=== PATIENT | female | born 1985 | race Caucasian/White ===

== ENCOUNTER 2017-07-23 09:16 | Emergency (ER) | payer OTHER ==
[~2017-07-23] VITALS: Ht 154.9 cm; Wt 52.3 kg
[2017-07-23 09:26] VITALS: Ht 154.9 cm; Wt 52.3 kg
[2017-07-23] MEDS ORDERED: HYDR-5688 PO (09:49)
[2017-07-23] MEDS ORDERED: METH4PAK PO (09:49)
[2017-07-23] MEDS ORDERED: CYCL5TAB PO (09:49)
--- NOTE | 2017-07-23 09:50 | EMERGENCY ROOM VISIT NOTE ---
History First contact with patient: 09:34 Chief Complaint: BACK PAIN Stated Complaint: REALLY BAD RIGHT LOWER BACK PAIN History of Present Illness The patient is a 31 year old female who presents to the Emergency Room via private vehicle "really bad right lower back pain". The patient states that she has a young child of which she frequently lifts with complaints of, and also participates in gym activities. She states that this past Wednesday she noticed pain in the right lower back/gluteal region that radiates down her right leg with a tingling sensation. She denies any fevers, chills, chest pain , shortness of breath, urinary symptoms, abdominal pain, chance of . The pain is worse with certain movements. No trauma or injury to the area. She rates her overall pain as an 8/10. She is taking ibuprofen with minimal relief. Review of Systems A complete 6-point Review of Systems was discussed with the patient, with pertinent positives and negatives listed in the History of Present Illness. All remaining Review of Systems questions can be considered negative unless otherwise specified. Past Medical/Surgical History No pertinent Family History No pertinent Social History Smoking Status: Never Smoker Pt. lives locally Current/Historical Medications Scheduled Cyclobenzaprine Hcl (Flexeril), 5 MG PO TID Methylprednisolone (Medrol Dosepak), 0 PO DAILY Scheduled PRN Hydrocodone/Acetaminophen 5MG/325MG ([place] 5MG/325MG), 1-2 TABLET PO Q6 PRN for Pain Physical Exam Vital Signs Date Time Temp Pulse Resp B/P (MAP) Pulse Ox O2 Delivery O2 Flow Rate FiO2 07/23/17 10:16 36.7 57 18 110/72 99 07/23/17 09:26 36.7 87 18 113/66 95 Room Air Physical Exam VITAL SIGNS - Vital signs and nursing notes were reviewed. Stable. GENERAL - 31-year-old female appearing her stated age who is in no acute distress. Communicates well with provider and answers questions appropriately. SKIN - Without rashes. No meningeal or petechial rash. HEAD - NC/AT. EYES - PERRL with EOMI bilaterally. Sclera anicteric. EARS - No deformities of external structures noted on gross examination bilaterally. NOSE - Midline and without cyanosis. No epistaxis or purulent drainage noted. MOUTH/OROPHARYNX - Without perioral cyanosis. NECK - Neck with FROM. No nuchal rigidity. LUNGS - Chest wall symmetric without accessory muscle use, intercostals retractions, or central cyanosis. Normal vesicular breath sounds CTA B/L. No wheezes, rales, or rhonchi appreciated. CARDIAC - RRR with S1/S2. No murmur, rubs, or gallops appreciated. ABDOMEN - Abdominal contour normal without pulsations or visible masses. BS normoactive all four quadrants. No tenderness, palpable masses, hepatosplenomegaly, or ascites noted. EXTREMITIES - No clubbing or peripheral cyanosis. No pretibial edema present. Full sensation intact in the right lower extremity. She is able to axial load. +5/5 strength noted in UE/LE bilaterally. NEUROLOGIC - Cranial nerves II through XII grossly intact. Sensory intact to light touch throughout. Patient's legs seem to be flexed therefore making the ability to elicit reflexes difficult however no neurovascular deficit appreciated. MUSCULOSKELETAL: Minimal tenderness to palpation overlying the patient's right inferior lumbar and right gluteal region. With palpation of the superior gluteal/inferior right lumbar paraspinous musculature region patient is able to have increased pins and needle sensation in the right lower extremity. PSYCH - A&O, and cooperates fully with examiner. Pt is very pleasant and interacts well with examiner. Medical Decision & Procedures Medical Decision Patient was seen and evaluated as above. She presents to us today with low back pain. I am able to reproduce some of the symptoms on exam. It appears musculoskeletal in nature. No bony tenderness. No evidence of cauda equina. No urinary symptoms or abdominal pain. She is nontoxic in appearance. Review was performed of nursing notes and vital signs. After obtaining a thorough history and physical examination the above work up was performed. I will treat her with 3 different medications. First is a steroid to decrease the radicular symptoms and help with inflammation which is suspected to cause this, as well as muscle relaxers and pain medicine. No red flags identified in the [facility] drug monitoring system. She takes no medications. She is to follow with her family doctor for follow-up or return here with worsening. I suspect she likely is experiencing muscle irritation causing nerve irritation in the right sciatic region. The patient was educated upon management, had questions answered prior to discharge, and was discharged home in good condition. In the evaluation and treatment of this patient the following differential diagnoses were entertained: Lumbar strain, sprain, fracture, dislocation, sciatica, cauda equina syndrome, abdominal etiologies, UTI, among others. Impression Primary Impression: Low back pain Departure Information Dispostion Home / Self-Care Condition GOOD Prescriptions Hydrocodone/Acetaminophen 5MG/325MG ([place] 5MG/325MG) Tab 1-2 TABLET PO Q6 Y for Pain, #15 TAB For Initial Treatment Prov: Caio Albarado PA-C 07/23/17 Cyclobenzaprine Hcl (FLEXERIL) 5 Mg Tab 5 MG PO TID for 5 Days, #15 TAB PRN Prov: Caio Albarado PA-C 07/23/17 Methylprednisolone (MEDROL DOSEPAK) 4 Mg Joe 0 PO DAILY, #1 PKT Prov: Caio Albarado PA-C 07/23/17 Referrals No Doctor, Assigned (PCP) Patient Instructions [facility] Additional Instructions You have been treated in the Emergency Department for Back Pain. You have been prescribed NORCO to be used for pain control. This is a narcotic medication. You cannot drive or consume alcohol while on this medicine. This medicine should only be used for pain that cannot be controlled with over-the- counter pain medicines. Please do not take any additional tylenol (acetaminophen ) with this You have been prescribed Flexeril (cyclobenzaprine) 1 tabs orally, three times per day. Do NOT exceed 30 mg (6 tabs) per day. Take your first dose at bedtime as it can make you drowsy. Always take all medications as prescribed. For pain control, you can use the following [id number] medicines (if >12 yo): - Regular strength (325mg/tab) Tylenol (acetaminophen) 2 tabs every 4-6 hours as needed. Do not exceed 12 tablets in a 24 hour period. Avoid taking more than 3 grams (3000 mg) of Tylenol per day. This includes any other sources of acetaminophen you may take on a regular basis. - Regular strength (200 mg/tab) Advil (ibuprofen) 1-2 tabs every 4-6 hours as needed. Do not exceed a dose of 3200 mg per day. If this is an acute injury, ice can be applied to the area of pain for the first 3 days to help decrease pain and inflammation. After the first 3 days, a heating pad can be used over the area for continued soothing relief. You should schedule a follow-up appointment in 2-3 days with your Primary Care Provider for further evaluation and treatment of your back pain. Return to the Emergency Department if your current symptoms worsen despite treatment course outlined above, or if you develop any of the following symptoms : intractable pain despite aforementioned treatment course, loss of control of your bowel or bladder, numbness or tingling in your groin, or development of a fever.
[2017-07-23 10:16] VITALS: BP 110/72; PULSE 57; TEMP 36.7; O2SAT 99
== END 2017-07-23 10:17 | disposition home or self-care (01) ==
LOC: C.EDB 09:16 → C.EDA 10:17
DX: M54.16 Radiculopathy, lumbar region (principal)